=== PATIENT | female | born 1950 | race Caucasian/White ===

== ENCOUNTER 2019-06-06 17:32 | Emergency (ER) | payer MEDICARE, SELFPAY ==
--- NOTE | ~2019-06-06 | XR_ITS ---
EXAMINATION: XR ankle RT min 3V DATE: 06/06/2019 18:44 INDICATION: Right ankle fracture post fall TECHNIQUE: Anteroposterior, oblique, mortise, and lateral views of the right ankle were obtained. COMPARISON: 03/07/2011 FINDINGS: Old healed lateral malleolar fracture with interfragmentary screw and lateral plate and screw fixatio n. There is an acute fracture of the distal right fibular diaphysis which extends to the tip of the c ephalad-most screw. There is approximately one cortical width lateral displacement of the distal frag ment. Mild displacement of an oblique medial malleolar fracture which extends to the medial angle of the ankle mortise. There is 2 mm separation of the fracture plane into the articular surface and up t o 4 mm separation at the lateral margin. There is also approximately 3 mm posterior displacement of a small fracture at the posterior malleolus which appears to involve only a negligible portion of the articular surface of the tibial plafond. There is approximately 5-6 mm lateral subluxation of the wade ar dome relative to the tibial plafond and. There is mild widening of the medial clear space. Increas e in size of a now large large heterotopic ossicle at the site of previously tiny displaced fracture fragment arising from a chronic avulsion at the tip of the medial malleolus. Additional small amount of heterotopic ossification likely related to old trauma along the anterior margin of the tibial plaf ond. Joint spaces appear normal. Small plantar calcaneal spur. There is splinting material posterior to the ankle. IMPRESSION: 1. Mild displacement of a right ankle trimalleolar fracture superimposed over a chronic bimalleolar f racture with prior internal fixation of the lateral malleolus. Reviewed, dictated and finalized at location A. ERY MACHINE FEEDER OFFBEARER IMPRESSION: 1. Mild displacement of a right ankle trimalleolar fracture superimposed over a chronic bimalleolar fracture with prior internal fixation of the lateral malle olus.
[2019-06-06 17:39] VITALS: BP 145/102; PULSE 99; RESP 18; TEMP 36.4; O2SAT 96
--- NOTE | 2019-06-06 19:00 | PC.NURSE ---
CAST REMOVED AT THIS TIME PER PA ORDER.
--- NOTE | 2019-06-06 19:40 | ED.GENADULT ---
HPI - General Adult General Chief complaint: Fall Stated complaint: right foot injury Time Seen by Provider: 06/06/19 18:00 Source: patient Mode of arrival: ambulatory Limitations: no limitations History of Present Illness HPI narrative: Patient presents with chief complaint of swelling and pain to the right ankle that has worsened over the past 24 hours. Patient states that she fell while vacationing in the [facility] on 06-04-19. Patient states that she spent a greater portion of yesterday traveling and was not able to elevate the extremity. Patient states this afternoon she noticed an increasing amount of swelling to the area and discomfort. Patient states that she had surgical fixation of her fibula in [place] [address] Irving and the images that were taken in the [facility] show a fracture above that area. She states that a splint was applied to the area but at this time it feels too tight. Patient reports attempting to be seen by Dr. Irving today and have him evaluate her xrays and form plan of care, but she was unable to get in. She then called her PCP Dr Olivares and was prescribed tramadol. Patient states she took 1 tramadol at 4pm and her pain level is a 4-5. She denies numbness or intense pain. She denies inability to move toes although she reports swelling makes it difficult. She denies needing and additional pain control at this time. Related Data Allergies Allergy/AdvReac Type Severity Reaction Status Date / Time No Known Allergies Allergy Verified 06/06/19 20:07 Review of Systems Review of Systems: Narrative: CONSTITUTIONAL: Denies fever, chills, or sweats. EYES: Denies visual changes, redness, or discharge. ENT: Denies rhinorrhea, congestion, sore throat, or otalgia. CARDIOVASCULAR: Denies chest pain, palpitations, or edema. RESPIRATORY: Denies cough or dyspnea. GASTROINTESTINAL: Denies abdominal pain, nausea, vomiting, or diarrhea. GENITOURINARY: Denies dysuria or hematuria. SKIN: Denies rash or itching. MUSCULOSKELETAL: Report right low leg pain. Denies back pain, joint pain, or myalgia. NEUROLOGIC: Denies headache, numbness, dizziness, or weakness. PSYCHIATRIC: Denies anxiety or depression. PMFSH Social History Social History Gender identity (if verbalized by the patient): Female Exam Narrative: Exam Narrative: GENERAL: Well-appearing, well-nourished, and in no acute distress. HEAD: Normocephalic, atraumatic. EYES: PERRLA and EOMI. ENT: Nares clear, no rhinorrhea or epistaxis. Mucous membranes moist. Oropharynx without tonsillar hypertrophy exudate or other lesions. Bilateral TMs pearly tello nonbulging NECK: Supple. No adenopathy or masses. No carotid bruits or JVD CHEST: Clear to auscultation. No respiratory distress. No wheezes rales or rhonchi HEART: Regular rate and rhythm. No murmur heard. Normal peripheral pulses. ABDOMEN: Soft, nontender, nondistended, normal active bowel sounds. EXTREMITIES: Moderate edema from the knee down or right leg with increased warmth in comparison to left and taughtness. Splint will be removed for further assesment. SKIN: Warm, dry, no rash. NEURO: No focal deficits. Alert and oriented x3. PSYCH: Normal mood and affect. Course Course Emergency Course: splint removed and friction blister noted to medial aspect of right lower leg proximal to medial malleolus. No calf tenderness with palpation. Sensation intact to patient toes. patient is able to wiggle them. Awaiting call back from Dr Irving. Consult with Dr Deleon who is teacher adult education for Dr Irving. He states ortho teacher adult education needs to be contacted about this patient. Consult with Dr Mishra. He wants patient in short leg posterior splint, no stirrup component due to pressure blister. He wants patient to elevate extremity and follow up in his office on sunday. Call sunday for an appointment. Vital Signs Vital signs: Vital Signs Temperature 97.6 F 06/06/19 17:39 Pulse Rate 99 06/06/19 17:39 Respiratory Rate
[2019-06-06 21:35] VITALS: BP 147/76; PULSE 87; RESP 18; O2SAT 99
== END 2019-06-06 22:00 | disposition home or self-care (01) ==
PROVIDERS: Emergency Provider Emergency Medicine
DX: S82.851A Displaced trimalleolar fracture of right lower leg, initial encounter for closed fracture (principal); W19.XXXA Unspecified fall, initial encounter
CPT/HCPCS: 29515; 73610; 99284

== ENCOUNTER 2025-02-12 12:45 | Outpatient (CLI) | payer MEDICARE, SELFPAY ==
--- OUTSIDE RECORDS SUMMARY | 2025-02-12 19:37 | XMS_ITS | Encounter Summary ---
Author Organization [facility] Address [address] [place] [address] Care Team Providers Care Rn Family Name Role Phone Maddie Peacock PA-C Primary Care Provider Jeff Dos Santos MD Primary Care Provider [phone] Encounter Details Date Type Department Care Team ([facility] st Contact Info) Description 08/31/2022 [employer] Message [employer] HEALTH INFORMATION MANAGEMENT [address] [place] [address] [place], [facility] Provider Patient Amendment Request Social History Tobacco Use Types Packs/Day Years Used Date Smoking Tobacco: Never Smokeless Tobacco: Never Alcohol Use Standard Drinks/Week Comments Yes 5 (1 standard drink = 0.6 oz pur e alcohol) social AUDIT-C Answer Date Recorded Frequency of Alcohol Consumption Monthly or less 02/13/2018 Average Number of Drinks 1 or 2 018 Frequency of Binge Drinking Less than monthly PHQ-2 Answer Date Recorded Patient Health Questionnaire-2 Score 0 06/20/2022 Education Answer Date Recorded What is the highest level of school you have completed or the highest degree you have received? Some college, no degree 02/13/2018 Comments No Sex and Gender Information Value Date Recorded Sex Assigned at Female 02/13/2018 10:15 AM IN FLIGHT REFUELING OPERATOR Legal Sex Female 7:42 PM CDT Gender Identity Female 01/19/2025 2:25 PM CDT Sexual Orientation Not on file Occupation Industry Job Start Date Job End Date retired Not on file Not on file Not on file COVID-19 Exposure Response Date Recorded In the last 10 days, have yo u been in contact with someone who was confirmed or suspected to have Coronavirus/COVID-19? No / Unsure 08/30/2022 9:45 AM CDT documented as of this encounter Plan of Treatment Upcoming Encounters Date Type Department Care Team (Late st Contact Info) Description 05/28/2025 11:20 AM IN FLIGHT REFUELING OPERATOR Office Visit [facility] Family & Internal Medicine [facility] [address] [place] [address] [place] [address] [address] documented as of this encounter Visit Diagnoses Not on filedocumented in this encounter Additional Health Concerns Assessment Noted Time PHQ-9 Depression Total Score: 0 11/06/19 21 3:02 PM CDT documented as of this encounter Care Teams Rn Family Relationship Specialty Start Date End Date Maddie Peacock PA-C PCP - General PHYSICIAN PAID SEARCH MARKETING ANALYST 08/18/22 07/02/24 [place] [address] [address] PCP - General INTERNAL MEDICINE 07/03/24 documented as of this encounter
--- OUTSIDE RECORDS SUMMARY | 2025-02-12 19:37 | XMS_ITS | Encounter Summary ---
Author Organization [facility] Address [address] [place] [address] Care Team Providers Care Decorator Consultant Name Role Phone Maddie Peacock PA-C Primary Care Provider [phone] Jeff Dos Santos MD Primary Care Provider [phone] Encounter Details Date Type Department Care Team (Late st Contact Info) Description 09/06/2022 [employer] Message Enc [facility] Family & Internal Medicine [address] [address] [employer], [facility] Provider cost control supervisor Social History Tobacco Use Types Packs/Day Years [...] Sex Assigned at Female 02/13/2018 10:15 AM NETWORK ANNOUNCER Legal Sex Female 7:42 PM CDT Gender [...] suspected to have Coronavirus/COVID-19? No / Unsure 09/05/2022 3:25 PM CDT documented as of this encounter Progress Notes * Mary Horvath RN - 09/07/2022 11:07 AM CDT 09/07/2022 9:59 AM Y Mary Horvath RN User Message referral Verified Itugo message was read. * Mary Horvath RN - 09/07/2022 9:59 AM CDT It[employer] message sent to patient and referral entered for Dr Chisholm. * Maddie Peacock PA-C - 09/07/2022 9:50 AM CDT Since the nabumetone did not appear to help would recommend stopping the nabumetone and just sticking with the steroids.. I agree with the earlier referral. If she is not sleeping due to pain, we could consider gabapentin at night to see if that would help. Thank you! * Mary Horvath RN - 09/07/2022 9:03 AM CDT Please advise. Ok to order referral for Dr Chisholm? Also please advise on utilization of both medications? Thanks, Isatu documented in this encounter Plan of Treatment Upcoming Encounters Date Type Department Care Team (Late st Contact Info) Description 05/28/2025 11:20 AM NETWORK ANNOUNCER Office Visit [facility] Group Family & Internal Medicine [address] [address] [place] [address] [place] [address] documented as of this encounter Visit Diagnoses Not on filedocumented in this encounter Additional Health Concerns Assessment Noted Time PHQ-9 Depression Total Score: 0 11/06/19 21 3:02 PM CDT documented as of this encounter Care Teams Decorator Consultant Relationship Specialty Start Date End Date Maddie Peacock PA-C PCP - General PHYSICIAN LAND DEPARTMENT HEAD 08/18/22 07/02/24 [place] [address] [place] [address] PCP - General INTERNAL MEDICINE 07/03/24 documented as of this encounter
--- OUTSIDE RECORDS SUMMARY | 2025-02-12 19:37 | XMS_ITS | Encounter Summary ---
Author Organization [facility] Address [address] [place] [address] Care Team Providers Care Senior Cognos Developer Name Role Phone Maddie Peacock PA-C Primary Care Provider [phone] Jeff Dos Santos MD Primary Care Provider [phone] Encounter Details Date Type Department Care Team (Late st Contact Info) Description 08/01/2023 [employer] Message Enc [facility] Medical Group Family & Internal Medicine [address] [address] [employer], [facility] Provider Due for appt Social History Tobacco Use Types Packs/Day Years [...] Sex Assigned at Female 02/13/2018 10:15 AM TRAVEL INSURANCE AGENT Legal Sex Female 7:42 PM CDT Gender Identity Female 01/19/2025 2:25 PM CDT Sexual Orientation Not on file Occupation Industry Job Start Date Job End Date retired Not on file Not on file Not on file documented as of this encounter Plan of Treatment Upcoming Encounters Date Type Department Care Team (Late st Contact Info) Description 05/28/2025 11:20 AM TRAVEL INSURANCE AGENT Office Visit [facility] Group Family & Internal Medicine - [place] [address] [place] [address] [place] [address] [address] documented as of this encounter Visit Diagnoses Not on filedocumented in this encounter Additional Health Concerns Assessment Noted Time PHQ-9 Depression Total Score: 0 11/06/19 21 3:02 PM CDT documented as of this encounter Care Teams Senior Cognos Developer Relationship Specialty Start Date End Date Maddie Peacock PA-C PCP - General PHYSICIAN ACCOUNTS PAYABLE BOOKKEEPER 08/18/22 07/02/24 [place] [address] [address] PCP - General INTERNAL MEDICINE 07/03/24 documented as of this encounter
--- OUTSIDE RECORDS SUMMARY | 2025-02-12 19:37 | XMS_ITS | Clinical Summary ---
Author Organization [facility] Address [address] [place] [address] Care Team Providers Care Life Guard Name Role Phone Kentrell Winter MD Primary Care Provider [phone] Source Comments [facility],non-owned Affiliates and Associated Physician Practices is amultiple site organization consisting of ambulatory clinics and hospital sitesin [place], [place], [place] and [place]. This disclosure is being madepursuant to the Care Everywhere program and may not contain all information available regarding this patient. Last updated 17.[facility] Allergies No known active allergies Medications * Be aware that medications may not be up to date on this document. Alwaysverify current medications with the patient. levothyroxine (SYNTHROID) 137 MCG tablet 3 6 Active atorvastatin (LIPITOR) 20 MG tablet 7 6 Active aspirin (ASPIRIN) 81 MG tablet Take 1 (one) tablet by mouth once daily Active Multiple Minerals-Vitamin s (CALCIUM & VIT D3 BONE HEALTH PO) Take 600-800 mg by mouth once daily Active omeprazole (PRILOSEC) 20 MG capsule Take 1 (one) capsule by mouth daily before breakfast Active [place]-3 Fatty Acids (FISH OIL DELAYED RELEASE) 1000 MG capsule Take 1,200 mg by mouth daily with food Active Loratadine 10 MG Take 10 mg by mouth once daily Active Multiple Vitamins-Mineral s (MULTIVITAMIN & MINERAL PO) Take 1 tablet by mouth once daily Active losartan (COZAAR) 25 MG tablet Take 1 (one) tablet by mouth once daily Active Turmeric (QC TUMERIC COMPLEX PO) Take by mouth once daily Active ketoconazole (NIZORAL) 2 % shampooIndicatio ns:Rash and other nonspecific skin eruption Leather on back, chest and abdomen, leave on for 3 minutes, then rinse; once weekly. 30 days supply 120 mL 11 1 Active amLODIPine (Norvasc) 5 MG tablet Take 1 (one) tablet by mouth once daily 3 Active hydroCHLOROthiaz harper (Microzide) 12.5 MG capsule Take 1 (one) capsule by mouth once daily 3 Active losartan (Cozaar) 100 MG tablet Take 1 (one) tablet by mouth once daily 3 Active levothyroxine (Synthroid) 137 MCG tablet Take 1 (one) tablet by mouth once daily 4 Active losartan (Cozaar) 50 MG tablet TAKE 1 TABLET BY MOUTH ONCE DAILY WITH A 25MG TABLET TO TOTAL OF 75MG DAILY 2 Active omeprazole (PriLOSEC) 20 MG capsule Take 1 (one) capsule by mouth once daily 3 Active predniSONE (Deltasone) 5 MG tablet Take 1 (one) tablet by mouth once daily 3 Active meloxicam (Mobic) 15 MG tablet Take 1 (one) tablet by mouth once daily as needed 4 Active atorvastatin (Lipitor) 20 MG tablet Take 1 (one) tablet by mouth once daily 3 Active methotrexate 2.5 MG tablet Take 8 (eight) tablets by mouth 4 Active triamcinolone acetonide (Kenalog) 0.1 % creamIndications :Rash and other nonspecific skin eruption APPLY TO RASH AREA(S) TWICE DAILY 60 g 4 Active Active Problems Problem Noted Date Diagnosed Date Lentigines 01/17/2021 Multiple benign melanocytic nevi of upper and lower extremities and trunk 01/17/2021 Rash and other nonspecific skin eruption 021 Painful orthopaedic hardware 07/08/2020 Overview (01/17/2021): Added automatically from request for surgery [id number] Screening for colon cancer 01/12/2020 Overview (01/17/2021): Added automatically from request for surgery [id number] Closed bimalleolar fracture of right ankle 06/15 Overview (01/17/2021): Added automatically from request for surgery [id number] Added automatically from request for surgery [id number] Closed fracture of right ankle with routine heal ing 06/13/2019 Gastroesophageal reflux disease without esophagi tis 04/03/2019 Hyperlipidemia 12/10/2016 Hypertension 12/08/2016 Hypothyroidism 12/08/2016 Other seborrheic keratosis 11/04/2012 Immunizations Immunization Administration Dates Next Due INFLUENZA VACCINE, HIGH-DOSE , QUADR. (FLUZONE HIGH-DOSE QUADRIVALENT; 65Y+), 0.7 ML (HD-IIV4) 01/13/2019 Family History Medical History Relation Name Comments Allergy (Severe) Neg Hx Asthma Neg Hx CVA Neg Hx Cancer Neg Hx Cancer - Breast Neg Hx Cancer - Other Neg Hx Cancer - Skin, Melanoma Neg Hx Cancer - Skin, Non Melanoma Neg Hx Eczema Neg Hx Hemophilia Neg Hx Psoriasis Neg Hx Rashes/Skin Problems Neg Hx Social History Tobacco Use Types Packs/Day Years Used Date Smoking Tobacco: Never Smokeless Tobacco: Never Alcohol Use Standard Drinks/Week Comments Yes 0.8 (1 standard drink = 0.6 oz p ure alcohol) socially Comments Unknown Sex and Gender Information Value Date Recorded Sex Assigned at Not on file Legal Sex Female 5:32 PM EQUALIZING SAW OPERATOR Gender Identity Not on file Sexual Orientation Not on file Plan of Treatment Upcoming Encounters Date Type Department Care Team (Late st Contact Info) Description 08/10/2025 10:10 AM CDT Office Visit [facility] - Dermatology [address] [place] [address], [place] [address] Rox Rodgers MD [address] [place] [address] [address] [place] [address] Health Maintenance Due Date Last Done Comments COLOGUARD (AGES 45-75) - COLON CA SCREENING 1951 COLON MONITORING 1951 COLONOSCOPY - COLON CA SCREENING 1951 CT COLONOGRAPHY - COLON CA SCREENING 1950 Colorectal Cancer Screening 1950 FIT - COLON CA SCREENING 1950 FLEX SIG - COLON CA SCREENING 1950 MEDICARE AWV 12 MONTHS 1950 HEPATITIS C SCREENING 11/01/1969 DTAP/TDAP/TD VACCINES (1 - Tdap) 11/05/1970 PNEUMOCOCCAL VACCINE 50+ (1 of 1 - PCV) 11/05/2001 ZOSTER VACCINE (1 of 2) 11/05/2001 Respiratory Syncytial Virus (RSV) Vaccine Pt: or over 60 yrs (1 - Risk 60-74 years 1-dose series) 2011 DEPRESSION SCREENING 04/09/2024 COVID-19 VACCINE ( season) 2024 09/09/2021, 04/15/2021, 06/10/2020, Additional history exists INFLUENZA VACCINE (#1) 2024 , 01/06/2023, 02/21/2022, Additional history exists MAMMOGRAM 11/01/2025 11/02/2023, 10/08, 12/16/2021, Additional history exists BONE DENSITY TESTING Completed 12/23/2019 HEPATITIS B VACCINE Aged Out No longe r eligible based on patient's age to complete this topic HIB VACCINE Aged Out No longer eligi ble based on patient's age to complete this topic HPV VACCINE Aged Out No longer eligi ble based on patient's age to complete this topic MENINGOCOCCAL (Group B) VACCINE SHARED DECISION-MAKING Aged Out No longer eligible based on patient's age to complete this topic MENINGOCOCCAL GROUPS A/C/Y/W VACCINE Aged Out No longer eligible based on patient's age to complete this topic Insurance MEDICARE MEDICARE Care Teams Life Guard Relationship Specialty Start Date End Date Kentrell Winter MD PCP - General 01/12/20
--- OUTSIDE RECORDS SUMMARY | 2025-02-12 19:37 | XMS_ITS | Encounter Summary ---
Author Organization [facility] Address [address] [place] [address] Care Team Providers Care Supervisor Slashing Department Name Role Phone Meenakshi Huber Primary Care Provider [phone] Maddie Peacock PA-C Primary Care Provider [phone] Jeff Dos Santos MD Primary Care Provider [phone] Encounter Details Date Type Department Care Team (Late st Contact Info) Description 03/21/2022 [email or web address] Message Enc [facility] Family & Internal Medicine - [place] [address] [place] [address] Meenakshi Huber APNP [address] [facility] [address] [place] [address] High Blood Pressure Social History Tobacco Use Types Packs/Day Years Used Date Smoking Tobacco: Never Smokeless Tobacco: Never Alcohol Use Standard Drinks/Week Comments Yes 5 (1 standard drink = 0.6 oz pur e alcohol) social AUDIT-C Answer Date Recorded Frequency of Alcohol Consumption Monthly or less 02/13/2018 Average Number of Drinks 1 or 2 018 Frequency of Binge Drinking Less than monthly PHQ-2 Answer Date Recorded PHQ-2 Score - If the patient scores above 3, please move on to questions 3-9 0 11/04/2021 Education Answer Date Recorded What is the highest level of school you have completed or the highest degree you have received? Some college, no degree 02/13/2018 Comments No Sex and Gender Information Value Date Recorded Sex Assigned at Female 02/13/2018 10:15 AM PROCESS ANALYST Legal Sex Female 7:42 PM CDT Gender [...] suspected to have Coronavirus/COVID-19? No / Unsure 02/21/2022 8:45 AM PROCESS ANALYST documented as of this encounter Progress Notes * Darrius Hodge RN - 03/21/2022 11:07 AM CST See patient BP readings. ESS ANALYST documented in this encounter Plan of Treatment Upcoming Encounters Date Type Department Care Team (Late st Contact Info) Description 05/28/2025 11:20 AM PROCESS ANALYST Office Visit [facility] Group Family & Internal Medicine [facility] [address] [place] [address] [place] [address] [facility] [address] [place] [id number] documented as of this encounter Visit Diagnoses Not on filedocumented in this encounter Additional Health Concerns Assessment Noted Time PHQ-9 Depression Total Score: 0 11/06/19 21 3:02 PM CDT documented as of this encounter Care Teams Supervisor Slashing Department Relationship Specialty Start Date End Date Meenakshi Huber APNP [address] [address] PCP - General NURSE PRACTITIONER 02/13/18 08/17/22 Maddie Peacock PA-C [address] [address] PCP - General PHYSICIAN PLASMA CUTTING MACHINE OPERATOR 08/18/22 07/02/24 [place] [address] [address] PCP - General INTERNAL MEDICINE 07/03/24 documented as of this encounter
--- OUTSIDE RECORDS SUMMARY | 2025-02-12 19:37 | XMS_ITS | Encounter Summary ---
Author Organization [facility] Address [address] [place] [address] Care Team Providers Care Assistant Dean Name Role Phone Maddie Peacock PA-C Primary Care Provider [phone] Jeff Dos Santos MD Primary Care Provider [phone] Encounter Details Date Type Department Care Team (Late st Contact Info) Description 09/07/2022 [email or web address] Message Enc [facility] Family & Internal Medicine [address] [address] avox, [facility] Provider referral Social History Tobacco Use Types Packs/Day Years [...] Sex Assigned at Female 02/13/2018 10:15 AM SEARCH ENGINEER Legal Sex Female 7:42 PM CDT Gender [...] PM CDT documented as of this encounter Plan of Treatment Upcoming Encounters Date Type Department Care Team (Late st Contact Info) Description 05/28/2025 11:20 AM SEARCH ENGINEER Office Visit [facility] Family & Internal Medicine [facility] [address] [place] [address] [place] [id number] [address] documented as of this encounter Visit Diagnoses Not on filedocumented in this encounter Additional Health Concerns Assessment Noted Time PHQ-9 Depression Total Score: 0 11/06/19 21 3:02 PM CDT documented as of this encounter Care Teams Assistant Dean Relationship Specialty Start Date End Date Maddie Peacock PA-C PCP - General PHYSICIAN EXTENSION COURSE COORDINATOR 08/18/22 07/02/24 [place] [id number] [address] PCP - General INTERNAL MEDICINE 07/03/24 documented as of this encounter
--- OUTSIDE RECORDS SUMMARY | 2025-02-12 19:37 | XMS_ITS | Clinical Summary ---
Author Organization [facility] Address [address] [place] [address] Care Team Providers Care Rug Inspector Name Role Phone Jeff Dos Santos MD Primary Care Provider [phone] Allergies No known active allergies Medications Multiple Vitamin tablet Take 1 tablet by mouth once. Active aspirin 81 MG tablet Take 1 tablet (81 mg total) by mouth. Active loratadine 10 MG tablet Take 1 tablet (10 mg total) by mouth. 12/09/19 17 Active Scott-3 Fatty Acids (FISH OIL) 1200 MG CAPSULE DELAYED RELEASE Take 1,200 mg by mouth once. 12/09/19 17 Active calcium carb-cholecalcife rol 600-400 MG-UNIT Tab tablet 1 tablet daily. Active methotrexate (TREXALL) 2.5 MG tablet Take 8 tablets (20 mg total) by mouth once a week. 07/03/19 24 Active folic acid (FOLVITE) 1 MG tablet Take 2 tablets (2 mg total) by mouth daily. 03/31/20 24 Active latanoprost (XALATAN) 0.005 % ophthalmic solution Place 1 drop into both eyes daily. 02/27/20 24 Active amLODIPine (NORVASC) 5 MG tabletIndications :Hypertension, unspecified type Take 1 tablet (5 mg total) by mouth daily. 90 tablet 3 04/08/20 24 Active atorvastatin (LIPITOR) 20 MG tabletIndications :Mixed hyperlipidemia Take 1 tablet (20 mg total) by mouth daily. 90 tablet 3 04/08/20 24 Active hydroCHLOROthiazi de (MICROZIDE) 12.5 MG capsuleIndication s:Hypertension, unspecified type Take 1 capsule (12.5 mg total) by mouth daily. 90 capsule 3 04/08/20 24 Active losartan (COZAAR) 100 MG tabletIndications :Hypertension, unspecified type Take 1 tablet (100 mg total) by mouth daily. 90 tablet 3 04/08/20 24 Active omeprazole (PRILOSEC) 20 MG capsuleIndication s:Gastroesophagea l reflux disease without esophagitis Take 1 capsule (20 mg total) by mouth daily. 90 capsule 3 04/08/20 24 Active levothyroxine (SYNTHROID) 137 MCG tabletIndications :Other specified hypothyroidism Take 1 tablet (137 mcg total) by mouth daily. 30 tablet 01/20/20 25 Active metFORMIN ER (GLUCOPHAGE-XR) 500 MG 24 hr tabletIndications :Prediabetes Take 1 tablet (500 mg total) by mouth daily with breakfast. 90 tablet 01/21/20 25 Active meloxicam (MOBIC) 15 MG tablet Take 1 tablet (15 mg total) by mouth daily as needed. 07/07/19 24 025 Discontinued tiZANidine (ZANAFLEX) 2 MG tabletIndications :Polymyalgia rheumatica (HHS/HCC) Take 1 tablet by mouth twice daily as needed 60 tablet 10/22/19 24 025 Discontinued levothyroxine (SYNTHROID) 137 MCG tabletIndications :Other specified hypothyroidism Take 1 tablet by mouth once daily 30 tablet 12/16/19 25 025 Discontinued(Re order) metFORMIN ER (GLUCOPHAGE-XR) 500 MG 24 hr tabletIndications :Prediabetes Take 1 tablet (500 mg total) by mouth daily with breakfast. 90 tablet 1 01/21/20 25 025 Discontinued Active Problems Problem Noted Date Diagnosed Date Seasonal allergies 01/19/2025 Assessment & Plan (01/19/2025 3:05 PM CDT): Usually during fall season. Loratadine as needed Glaucoma of both eyes, unspecified glaucoma type 01/19/2025 Assessment & Plan (01/19/2025 3:05 PM CDT): Under care by clinical documentation improvement specialist BMI 33.0-33.9,adult 01/19/2025 Assessment & Plan (01/19/2025 3:05 PM CDT): Exercise and movement-physically active for at least 150 minutes per week Nutrition-Eat mostly plants (variety of whole grains & aim for carbohydrates low in glycemic index) -Limit fat (25-35% of your total calories) -Eat more omega-3 fatty acids (eating fatty cold water fish, walnuts, ground flax seed, and fortified eggs) -Drink more fluids (8 cups per day) -Eat smart (same time & portions) -Eat only when hungry Polymyalgia rheumatica 09/07/2023 Assessment & Plan (01/19/2025 3:05 PM CDT): Under care of a gold frame assembler for rheumatoid arthritis per the patient and on methotrexate 20 mg weekly with folic acid daily Screening for colon cancer 01/12/2020 Overview (01/12/2020): Added automatically from request for surgery [id number] Closed bimalleolar fracture of right ankle 06/15 Overview (10/29/2019): Added automatically from request for surgery [id number] Closed fracture of right ankle with routine heal ing 06/13/2019 Gastroesophageal reflux disease without esophagi tis 04/03/2019 Assessment & Plan (01/19/2025 3:05 PM CDT): Currently on omeprazole 20 mg daily-use it only as needed Cut back spicy meals and beverages Dyslipidemia 12/10/2016 Assessment & Plan (01/19/2025 3:05 PM CDT): Currently on atorvastatin 20 mg at supper also fish oil capsule along with diet controlled with restriction on red meat products and UPF Primary hypertension 12/08/2016 Assessment & Plan (01/19/2025 3:05 PM CDT): Better controlled while on losartan 100 mg daily amlodipine 5 mg daily and HCTZ 12.5 mg daily Low-salt diet Acquired hypothyroidism 12/08/2016 Assessment & Plan (01/19/2025 3:05 PM CDT): Postsurgical in 1969 status post obstructive in nature Currently on levothyroxine 137 mcg daily in the mornings Check labs and adjust the dose per the need - She had her thyroid removed in 1968 due to a goiter that was suspected to be cancerous. She has been on levothyroxine since then. - A prescription for levothyroxine 137 mcg has been sent to the pharmacy, but she is advised not to pick it up until her thyroid levels are checked. If the thyroid levels are stable, she can continue with the same dose; otherwise, the dose will be adjusted accordingly. Other seborrheic keratosis 11/04/2012 Resolved Problems Problem Noted Date Diagnosed Date Resolved Date Wears glasses 09/06/2017 12/19/2019 Encounter for preventive health examination 11/22/2016 12/19/2019 Encounters Date Type Department Care Team Description 01/20/2025 12:26 PM CDT - 01/20/2025 11:59 PM CDT Hospital Encounter [facility] Laboratory [id number] [place] [address] Jeff Dos Santos MD Discharge Disposition: Home or Self Care (Routine Discharge) 01/20/2025 9:10 AM CDT Laboratory Only [facility] Family & Internal [facility] [id number] [place] [phone] Jeff Dos Santos MD 01/20/2025 Results Follow-Up [facility] Family & Internal [address] [phone] Jeff Dos Santos MD CBC W/DIFF AUTOMATED, HEMOGLOBIN, GLYCOSYLATED, ALBUMIN URINE RANDOM W/CREATININE, Additional followed-up results: 3 01/19/2025 2:20 PM CDT Office Visit [facility] Family & Internal [facility] [address] [place] [phone] Jeff Dos Santos MD Meet and Greet Provider (Transfer pt- est care and will need bld work and refill of synthroid) 01/19/2025 Travel from Last 3 Months Immunizations Immunization Administration Dates Next Due Dtap 02/01/2011 Fluzone High Dose - >Age 65 (Prefilled Syringe) 02/21/2022 Influenza (Generic) 02/04/2015,04/09/2013 Influenza Adult (Generic) 01/22/2024,,02/21/2022,2021,01/13/2019,02/04/2015,04/09/2013 PFIZER COVID-19 (NELSON CAP), MRNA, LNP-S, PF, 30 MCG/0.3 ML KIP-SUCROSE, IM 09/09/2021 PFIZER COVID-19 (ORIGINAL FORMULATION, PURPLE CAP) mRNA, LNP-S, PF, 30 MCG/0.3 ML DOSE 04/15/2021,06/10/2020,05/17/2020 Pneumococcal (Pneumovax 23) 11/05/2020 Pneumococcal (Prevnar 13) 01/22/2024,10/29/2019 RSV VACCINE, UNSPECIFIED 04/10/2023 Shingrix 04/10/2023 Zoster (Zostavax) [address] Unt/0.65Ml 05/01/2012 Family History Medical History Relation Comments Heart Disease Father Hypertension Father cardiac disorder Father Heart Disease Mother cardiac disorder Mother Breast Cancer Neg Hx Relation Status Comments Father Mother Social History Tobacco Use Types Packs/Day Years Used Date Smoking Tobacco: Never Smokeless Tobacco: Never Alcohol Use Standard Drinks/Week Comments Yes 5 (1 standard drink = 0.6 oz pur e alcohol) Weekly AUDIT-C Answer Date Recorded Frequency of Alcohol Consumption Monthly or less 02/13/2018 Average Number of Drinks 1 or 2 018 Frequency of Binge Drinking Less than monthly PHQ-2 Answer Date Recorded Patient Health Questionnaire-2 Score 0 01/19/2025 Education Answer Date Recorded What is the highest level of school you have completed or the highest degree you have received? Some college, no degree 02/13/2018 Comments No Sex and Gender Information Value Date Recorded Sex Assigned at Female 02/13/2018 10:15 AM LEAD ETL DEVELOPER Legal Sex Female 7:42 PM CDT Gender Identity Female 01/19/2025 2:25 PM CDT Sexual Orientation Not on file Occupation Industry Job Start Date Job End Date retired Not on file Not on file Not on file Last Filed Vital Signs Vital Sign Reading Time Taken Comments Blood Pressure 132/74 01/19/2025 2:22 PM CDT Pulse 70 01/19/2025 2:22 PM CDT Temperature 36.4 C (97.5 F) 01/19/2025 2:22 PM CDT Respiratory Rate 18 01/19/2025 2:22 PM CDT Oxygen Saturation 97% 01/19/2025 2:22 PM CDT Inhaled Oxygen Concentration - - Weight 96.2 kg (212 lb) 01/19/2025 2:22 PM CDT Height 170.2 cm (5' 7) 01/19/2025 2:22 PM CDT Body Mass Index 33.2 01/19/2025 2:22 PM CDT Plan of Treatment Upcoming Encounters Date Type Department Care Team (Late st Contact Info) Description 05/28/2025 11:20 AM LEAD ETL DEVELOPER Office Visit [facility] Family & Internal Medicine - [place] [address] [place] [phone] [place] [address] [facility] [address] [place] [address] Health Maintenance Due Date Last Done Comments Annual Medicare Wellness Visit 11/05/2016 DTaP, Tdap and Td Vaccines (2 - Tdap) 02/01/2021 02/01/2011 Zoster Vaccines (3 of 3) 06/05/2023 04/10/2023, 04/10 COVID-19 Vaccine (5 - season) 2024 09/09/2021, 04/15/2021, 06/10/2020, Additional history exists Influenza Adult (#1) 2025 01/22/2024, 01/06/2023, 02/21/2022, Additional history exists Mammogram Screening 11/01/2025 11/02/2023, 12/16/2021, 12/23/2019 Colorectal Cancer Screening Colonoscopy (10 Years) 01/20/2030 01/21/2020, 10/25/2007, Dexa Scan (General) Completed 12/23/2019 Hepatitis C Completed 09/08/2022 RSV Immunization or 60+ Years Completed 04/10/2023 Pneumococcal Vaccine: 50+ Years Completed 01/22/2024, 11/05/2020, 10/29/2019 PHQ-2 (Physician [place]) Completed 01/19/2025 Hepatitis A Vaccines Aged Out No long er eligible based on patient's age to complete this topic Meningococcal B Vaccine Aged Out No l onger eligible based on patient's age to complete this topic Meningococcal Vaccine Aged Out No maureen randal eligible based on patient's age to complete this topic RSV Immunizations Under 20 Months Aged Out No longer eligible based on patient's age to complete this topic Procedures Procedure Name Priority Date/Time Associated Diagnosis Comments COLLECTION VENOUS BLOOD VENIPUNCTURE Routine 01/20/2025 9:03 AM CDT Long-term use of high-risk medication COMPREHENSIVE METABOLIC PANEL Routine 01/20/2025 8:56 AM CDT Long-term use of high-risk medication LIPID PANEL Routine 01/20/2025 8:56 AM CDT Long-term use of high-risk medication TSH W/REFLEX Routine 01/20/2025 8:56 AM CDT Long-term use of high-risk medication ALBUMIN URINE RANDOM W/CREATININE Routine 01/20/2025 8:56 AM CDT Long-term use of high-risk medication HEMOGLOBIN, GLYCOSYLATED Routine 01/20/2025 8:56 AM CDT Long-term use of high-risk medication CBC W/DIFF AUTOMATED Routine 01/20/2025 8:56 AM CDT Long-term use of high-risk medication MG SCREENING W JUMANA THAO DIGI Routine 11/02/2023 3:15 PM CDT Screening mammogram for breast cancer BONE DENSITY/DEXA Routine 12/23/2019 10: 27 AM CDT Age-related osteoporosis without current pathological fracture Screening For Osteoporosis COLONOSCOPY GENERIC (SCAN ORDER) 10/25/2007 from Last 3 Months or Most Recently Relevant to Health Maintenance Results * TSH W/REFLEX (01/20/2025 8:56 AM CDT) TSH 0.477 0.358 - 3.74 uIU/ML 01/20/2025 1:19 PM CDT [facility] Comment: HIGH DOSES OF BIOTIN MAY INTERFERE WITH THIS TEST RESULT. CORRELATION TO CLINICAL HISTORY AND PRESENTATION RECOMMENDED. FREE T4 NOT INDICATED 01/20/2025 8:56 AM CDT Jeff Dos Santos MD LABORATORY Final Resul t Performing Organization Address [facility] Co de Phone Number [facility] [address] [place] [address], [place] [phone] * (ABNORMAL) HEMOGLOBIN, GLYCOSYLATED (01/20/2025 8:56 AM CDT) HGB A1C 6.2(H) <5.7 % 01/20/2025 1:15 PM CDT [facility] Comment: INCREASED RISK OF DIABETES <5.7% NON-DIABETES 5.7-6.4% INCREASED RISK FOR FUTURE DIABETES > OR = 6.5 CONSISTENT WITH DIABETES STANDARDS OF MEDICAL CARE IN DIABETES-2010 DIABETES CARE, 33(SUPP 1): S1-S61,2010 ESTIMATED AVG GLUCOSE 131 mg/dL 01/20/2025 1:15 PM CDT [facility] 01/20/2025 8:56 AM CDT Jeff Dos Santos MD LABORATORY Final Resul t Performing Organization Address [facility] Co de Phone Number [facility] [address] [place] [address], [place] [phone] * ALBUMIN URINE RANDOM W/CREATININE (01/20/2025 8:56 AM CDT) CREATININE (U) 87.7 28 - 217 MG/DL 01/20/2025 1:17 PM CDT [facility] MICROALBUMIN (U) 0.4 <2.0 mg/dL 01/21/20 1:17 PM CDT [facility] ALBUMIN/CREAT RATIO 4.6 <30.0 MG/G 01/20/2025 1:17 PM T [facility] URINE SPECIMEN / Unknown 01/20/2025 8:56 AM CDT us Jeff Dos Santos MD URINE ORDERABLES Final Resu lt [facility] [address] [place] [address], * (ABNORMAL) COMPREHENSIVE METABOLIC PANEL (01/20/2025 8:56 AM CDT) GLUCOSE 107(H) 70 - 99 MG/DL 01/20/2025 1:19 PM CDT [facility] BUN 16 7 - 18 MG/DL 01/20/2025 1:19 PM T [facility] CREATININE S/P/B 0.94 0.55 - 1.02 MG/DL 01/20/2025 1:19 PM T [facility] SODIUM S/P/B 139 136 - 145 MMOL/L 01/20/2025 1:19 PM T [facility] POTASSIUM S/P/B 4.2 3.5 - 5.1 MMOL/L 01/20/2025 1:19 PM T [facility] CHLORIDE S/P/B 100 100 - 108 MMOL/L 01/20/2025 1:19 PM T [facility] CO2 30.5 21 - 32 MMOL/L 01/20/2025 1:19 PM T [facility] CALCIUM S/P/B 9.2 8.5 - 10.1 MG/DL 01/20/2025 1:19 PM [facility] BILIRUBIN TOTAL S/P/B 0.5 0.2 - 1.2 MG/DL 01/20/2025 1:19 PM [facility] TOTAL PROTEIN S/P/B 7.2 6.4 - 8.2 G/DL 01/20/2025 1:19 PM [facility] ALBUMIN S/P/B 3.8 3.4 - 5.0 G/DL 01/20/2025 1:19 PM [facility] AST 14(L) 15 - 37 U/L 01/20/2025 1:19 PM [facility] ALT 38 14 - 55 U/L 01/20/2025 1:19 PM [facility] ALKALINE PHOSPHATASE S/P/B 101 50 - 136 U/L 01/20/2025 1:19 PM [facility] ANION GAP 8.5 5 - 15 MMOL/L 01/20/2025 1:19 PM [facility] BUN CREATININE RATIO 17.0 6 - 26 01/20/2025 1:19 PM [facility] A/G RATIO 1.1 1.0 - 2.0 RATIO 01/20/2025 1:19 PM [facility] GFR ESTIMATE 64(L) >90 ML/MIN/1.7 3 M2 01/20/2025 1:19 PM [facility] Comment: NOTE: eGFR is not calculated for patients <18 years of age. This is an estimated GFR calculation using the new CKD EPI creatinine equation without race and so does not require a correction factor for race. This estimated GFR should not be used for calculating drug doses. 01/20/2025 8:56 AM CDT Jeff Dos Santos MD LABORATORY Final Resul t [facility] [address] [place] [address], * LIPID PANEL (01/20/2025 8:56 AM CDT) CHOLESTEROL 160 <200.0 MG/DL 01/20/2025 1:19 PM CDT [facility] TRIGLYCERIDES 140 <150 MG/DL 01/20/2025 1:19 PM CDT [facility] HDL 44 >40.0 MG/DL 01/20/2025 1:19 PM CDT [facility] LDL (CALCULATED) 88 <100 MG/DL 01/21/20 25 1:19 PM CDT [facility] Comment:CALCULATED USING THE FRIEDEWALD EQUATION NON HDL CHOLESTEROL 116 <130 MG/DL 01/20 1:19 PM CDT [facility] CHOL/HDL RATIO 3.6 0.0 - 4.5 01/20/2025 1:19 PM CDT [facility] VLDL CALCULATION 28 5 - 55 MG/DL 01/20/2025 1:19 PM T [facility] LIPID INTERPRETATION 01/20/2025 1:19 PM CDT [facility] Comment: NIH CONCENSUS REPORT RECOMMENDATIONS: ADULT CHILD LOW RISK: CHOLESTEROL <200 <170 TRIGLYCERIDE <150 --- HDL >=60 --- LDL <100 <110 BORDERLINE: CHOLESTEROL 200-239 170-199 TRIGLYCERIDE 150-199 --- HDL 40-59 --- LDL 100-159 110-129 HIGH RISK: CHOLESTEROL >=240 >=200 TRIGLYCERIDE >=200 --- HDL <40 --- LDL >=160 >=130 01/20/2025 8:56 AM CDT Jeff Dos Santos MD LABORATORY Final Resul t [facility] [address] [place] [address], * (ABNORMAL) CBC W/DIFF AUTOMATED (01/20/2025 8:56 AM CDT) WBC 6.47 4.4 - 11.0 x10'3/uL 01/20/2025 12:48 PM CDT [facility] RBC 4.34(L) 4.50 - 5.10 x10'6/uL 01/20/2025 12:48 PM CDT [facility] HGB 13.5 12.3 - 15.3 G/DL 01/20/2025 12:48 PM CDT [facility] HCT 41.4 35.9 - 44.6 % 01/20/2025 12:48 PM CDT [facility] MCV 95.4 80.0 - 96.0 FL 01/20/2025 12:48 PM CDT [facility] MCH 31.1(H) 25.3 - 30.9 PG 01/20/2025 12:48 PM CDT [facility] MCHC 32.6 31.0 - 34.1 G/DL 01/20/2025 12:48 PM CDT [facility] RDW 13.7 12.4 - 15.1 % 01/20/2025 12:48 PM CDT [facility] PLT 245 151 - 353 x10'3/uL 01/20/2025 12:48 PM CDT [facility] MPV 11.0 9.6 - 12.0 FL 01/20/2025 12:48 PM CDT [facility] RBC MORPHOLOGY NORMAL 01/20/2025 12:48 PM CDT [facility] PLT MORPH. NORMAL 01/20/2025 12:48 PM CDT [facility] WBC MORPHOLOGY NORMAL 01/20/2025 12:48 PM CDT [facility] LYMPHOCYTES % 28.7 15.8 - 45.0 % 01/20/2025 12:48 PM CDT [facility] NEUTROPHILS % 55.1 42.1 - 71.9 % 01/20/2025 12:48 PM CDT [facility] MONOCYTES % 10.5 5.7 - 12.5 % 01/20/2025 12:48 PM CDT [facility] EOSINOPHILS 4.0 0.0 - 5.6 % 01/20/2025 12:48 PM CDT [facility] BASOPHILS 1.5(H) 0.0 - 1.3 % 01/20/2025 12:48 PM CDT [facility] ABS. NEUTROPHILS 3.56 1.40 - 6.00 x10'3/uL 01/20/2025 12:48 PM CDT [facility] IMMATURE GRANS % 0.2 0.0 - 0.5 % 01/20/2025 12:48 PM CDT [facility] ABS. LYMPHOCYTES 1.86 0.80 - 4.70 x10'3/uL 01/20/2025 12:48 PM CDT [facility] 01/20/2025 8:56 AM CDT us Jeff Dos Santos MD LABORATORY Final Resul t [facility] [address] [place] [address], * MG SCREENING W JUMANA THAO DIGI (11/02/2023 3:15 PM CDT) Anatomical Region Laterality Modality Breast Bilateral Mammography 11/05/2023 1:36 PM CDT Impressions 11/05/2023 1:36 PM CDT =====IMPRESSION:===== No mammographic findings suggestive of malignancy ASSESSMENT: ACR BI-RADS 2 - BENIGN FINDING(S) Recommendation: 1: Routine Screening Bilateral COMMENTS: Ordered By: MELISSA MORE Interpreted By: Andrea Iverson MD, 11/05/2023 1:36 PM Narrative 11/05/2023 1:36 PM CDT EXAMINATION: Digital bilateral screening mammogram with 3-D tomosynthesis EXAM DATE/TIME: 11/02/2023 3:03 PM REASON FOR EXAM: screening COMPARISON: Priors including December 2021, December 2019, August 2015. TECHNIQUE: Digital screening mammography of both breasts was performed in addition to 3-D Tomosynthesis technique. This study was read with the assistance of a computer-aided detection system. TISSUE DENSITY: There are scattered areas of fibroglandular density. FINDINGS: No suspicious masses, malignant appearing calcifications, skin thickening or other abnormalities are present. No significant change from the prior exam. Melissa MAY-C MAMMO Final Result * BONE DENSITY/DEXA (12/23/2019 10:27 AM CDT) Anatomical Region Laterality Modality Bone Bone Density 12/23/2019 1:21 PM CDT Impressions 12/23/2019 1:22 PM CDT FINDINGS AND IMPRESSION: Examination performed on a [employer] .: LUMBAR SPINE L2-L4: 1. BMD: 1.084 g/cm2. 2. T score: 0.0. Previous T score: No previous available. 3. WHO classification: Normal young adult range. 4. Fracture risk: Very low. LEFT FEMORAL NECK: 1. BMD: 0.869 g/cm2. 2. T score: 0.2. Previous T score: No previous available. 3. WHO classification: Normal young adult range. 4. Fracture risk: Very low. Voice recognition software utilized. Interpreted By: Keith Guan, 12/23/2019 1:21 PM Narrative 12/23/2019 1:22 PM CDT Examination: BONE DENSITY/DEXA Exam date/time: 12/23/2019 9:58 AM Comparison studies:No previous available. Clinical history: . Postmenopausal status, screening Procedure Note Keith Guan MD - 12/23/2019 Examination: BONE DENSITY/DEXA Exam date/time: 12/23/2019 9:58 AM Comparison studies:No previous available. Clinical history: . Postmenopausal status, screening FINDINGS AND IMPRESSION: Examination performed on a [employer] SL .: LUMBAR SPINE L2-L4: 1. BMD: 1.084 g/cm2. 2. T score: 0.0. Previous T score: No previous available. 3. WHO classification: Normal young adult range. 4. Fracture risk: Very low. LEFT FEMORAL NECK: 1. BMD: 0.869 g/cm2. 2. T score: 0.2. Previous T score: No previous available. 3. WHO classification: Normal young adult range. 4. Fracture risk: Very low. Voice recognition software utilized. Interpreted By: Keith Guan, 12/23/2019 1:21 PM us Meenakshi TORRES DEXA Final Resul t * COLONOSCOPY GENERIC (10/25/2007) 10/25/2007 Narrative 10/25/2007 Ordered by an unspecified provider. us Documents Scanned SCANNING Final Result from Last 3 Months or Most Recently Relevant to Health Maintenance Insurance [employer] [facility] [place] [employer] Care Teams Rug Inspector Relationship Specialty Start [place] [address] [place] [address] PCP - General INTERNAL MEDICINE 07/03/24
--- OUTSIDE RECORDS SUMMARY | 2025-02-12 19:37 | XMS_ITS | Encounter Summary ---
Author Organization [facility] Address [address] [place] [address] Care Team Providers Care Cash Sales Audit Clerk Name Role Phone Maddie Peacock PA-C Primary Care Provider [phone] Jeff Dos Santos MD Primary Care Provider [phone] Encounter Details Date Type Department Care Team (Late st Contact Info) Description 09/04/2022 [employer] Message Enc [facility] Family & Internal Medicine [address] [address] Maddie Peacock PA-C [address] [place] [address] Hips and shoulders pain Social History Tobacco Use Types Packs/Day Years [...] Sex Assigned at Female 02/13/2018 10:15 AM SALES OFFICE ASSISTANT Legal Sex Female 7:42 PM CDT Gender [...] Progress Notes * Mary Horvath RN - 09/05/2022 9:23 AM CDT Please advise. documented in this encounter Plan of Treatment Upcoming Encounters Date Type Department Care Team (Late st Contact Info) Description 05/28/2025 11:20 AM SALES OFFICE ASSISTANT Office Visit [facility] Family & Internal Medicine [address] [address] Jeff Dos Santos MD [address] [place] [phone] documented as of this encounter Visit Diagnoses Not on filedocumented in this encounter Additional Health Concerns Assessment Noted Time PHQ-9 Depression Total Score: 0 11/06/19 21 3:02 PM CDT documented as of this encounter Care Teams Cash Sales Audit Clerk Relationship Specialty Start Date End Date Maddie Peacock PA-C PCP - General PHYSICIAN NATURAL GAS TECHNICIAN 08/18/22 07/02/24 Jeff Dos Santos MD [address] [place] [id number] PCP - General INTERNAL MEDICINE 07/03/24 documented as of this encounter
--- OUTSIDE RECORDS SUMMARY | 2025-02-12 19:37 | XMS_ITS | Encounter Summary ---
Author Organization [facility] Address [address] [place] [address] Care Team Providers Care Garbage Pick Up Man Name Role Phone Meenakshi Huber Primary Care Provider [phone] Maddie Peacock PA-C Primary Care Provider [phone] Jeff Dos Santos MD Primary Care Provider [phone] Encounter Details Date Type Department Care Team (Late st Contact Info) Description 02/28/2022 [employer] Message Enc [facility] Family & Internal Medicine - [place] [address] [place] [address] Meenakshi Huber APNP [address] [facility] [address] [place] [address] High blood pressure Social History Tobacco Use Types Packs/Day Years [...] Sex Assigned at Female 02/13/2018 10:15 AM TANK FARM ATTENDANT Legal Sex Female 7:42 PM CDT Gender [...] Coronavirus/COVID-19? No / Unsure 02/21/2022 8:45 AM TANK FARM ATTENDANT documented as of this encounter Progress Notes * Darrius Hodge RN - 02/28/2022 2:03 PM CST See patient message below. FARM ATTENDANT documented in this encounter Plan of Treatment Upcoming Encounters Date Type Department Care Team (Late st Contact Info) Description 05/28/2025 11:20 AM TANK FARM ATTENDANT Office Visit [facility] Family & Internal Medicine [facility] [address] [place] [phone] [place] [address] [facility] [address] [place] [phone] documented as of this encounter Visit Diagnoses Not on filedocumented in this encounter Additional Health Concerns Assessment Noted Time PHQ-9 Depression Total Score: 0 11/06/19 21 3:02 PM CDT documented as of this encounter Care Teams Garbage Pick Up Man Relationship Specialty Start Date End Date Meenakshi Huber APNP [address] [address] PCP - General NURSE PRACTITIONER 02/13/18 08/17/22 Maddie Peacock PA-C [address] [address] PCP - General PHYSICIAN BARKER OPERATOR 08/18/22 07/02/24 [place] [address] [address] PCP - General INTERNAL MEDICINE 07/03/24 documented as of this encounter
--- OUTSIDE RECORDS SUMMARY | 2025-02-12 19:37 | XMS_ITS | Encounter Summary ---
Author Organization [facility] Address [address] [place] [address] Care Team Providers Care Brand Leader Name Role Phone Meenakshi Huber Primary Care Provider [phone] Maddie Peacock PA-C Primary Care Provider [phone] Jeff Dos Santos MD Primary Care Provider [phone] Encounter Details Date Type Department Care Team (Late st Contact Info) Description 01/15/2020 Prep for Procedure [facility] [address] [place], [place] [id number] Jeremy Huggins MD [address] [place] [id number] Social History Tobacco Use Types Packs/Day Years Used Date Smoking Tobacco: Never Smokeless Tobacco: Never Alcohol Use Standard Drinks/Week Comments Yes 0 (1 standard drink = 0.6 oz pur e alcohol) social AUDIT-C Answer Date Recorded Frequency of Alcohol Consumption Monthly or less 02/13/2018 Average Number of Drinks 1 or 2 018 Frequency of Binge Drinking Less than monthly PHQ-2 Answer Date Recorded PHQ-2 Score 0 04/03/2019 Education Answer Date Recorded What is the highest level of school you have completed or the highest degree you have received? Some college, no degree 02/13/2018 Comments No Sex and Gender Information Value Date Recorded Sex Assigned at Female 02/13/2018 10:15 AM SUGAR PLANTATION MANAGER Legal Sex Female 7:42 PM CDT Gender Identity Female 01/19/2025 2:25 PM CDT Sexual Orientation Not on file Occupation Industry Job Start Date Job End Date retired Not on file Not on file Not on file COVID-19 Exposure Response Date Recorded In the last month, have you been in contact with someone who was confirmed or suspected to have Coronavirus / COVID-19? No / Unsure 01/18/2020 11:18 AM CDT documented as of this encounter Plan of Treatment Upcoming Encounters Date Type Department Care Team (Late st Contact Info) Description 05/28/2025 11:20 AM SUGAR PLANTATION MANAGER Office Visit [facility] Family & Internal Medicine [facility] [address] [place] [phone] [place] [address] [address] documented as of this encounter Visit Diagnoses Diagnosis Preop testing- Primary Preoperative examination, unspecified documented in this encounter Additional Health Concerns Infection Onset Date Last Indicated Resolved Time COVID-19 Rule Out 01/18/2020 01/18/2020 01/19/2020 5:51 PM CDT documented as of this encounter Care Teams Brand Leader Relationship Specialty Start Date End Date Meenakshi Huber APNP [address] [address] PCP - General NURSE PRACTITIONER 02/13/18 08/17/22 Maddie Peacock PA-C [address] [address] PCP - General PHYSICIAN SUPERVISOR LAMP SHADES 08/18/22 07/02/24 [place] [address] [address] PCP - General INTERNAL MEDICINE 07/03/24 documented as of this encounter
--- OUTSIDE RECORDS SUMMARY | 2025-02-12 19:37 | XMS_ITS | Encounter Summary ---
Author Organization [facility] Address [address] [place] [address] Care Team Providers Care Service Line Layer Name Role Phone Maddie Peacock PA-C Primary Care Provider [phone] Jeff Dos Santos MD Primary Care Provider [phone] Encounter Details Date Type Department Care Team (Late st Contact Info) Description 07/02/2023 [employer] Message Enc [facility] Family & Internal Medicine [address] [address] [place] Provider Due for appt Social History Tobacco [...] Sex Assigned at Female 02/13/2018 10:15 AM PARACHUTE/COMBATANT DIVER OFFICER Legal Sex Female 7:42 PM CDT Gender Identity Female 01/19/2025 2:25 PM CDT Sexual Orientation Not on file Occupation Industry Job Start Date Job End Date retired Not on file Not on file Not on file documented as of this encounter Plan of Treatment Upcoming Encounters Date Type Department Care Team (Late st Contact Info) Description 05/28/2025 11:20 AM PARACHUTE/COMBATANT DIVER OFFICER Office Visit [facility] Family & Internal Medicine - [place] [address] [place] [address] [place] [address] [address] documented as of this encounter Visit Diagnoses Not on filedocumented in this encounter Additional Health Concerns Assessment Noted Time PHQ-9 Depression Total Score: 0 11/06/19 21 3:02 PM CDT documented as of this encounter Care Teams Service Line Layer Relationship Specialty Start Date End Date Maddie Peacock PA-C PCP - General PHYSICIAN SUPPLY TECH 08/18/22 07/02/24 [place] [address] [address] PCP - General INTERNAL MEDICINE 07/03/24 documented as of this encounter
--- OUTSIDE RECORDS SUMMARY | 2025-02-12 19:37 | XMS_ITS | Clinical Summary ---
Author Organization [facility] Address [address] [place] [phone] Care Team Providers Care Unpaid Intern Name Role Phone Kentrell Winter MD Primary Care Provider [phone] FolsomMike [place] MD Unavailable [phone] Allergies No known active allergies Medications atorvastatin (LIPITOR) 20 mg tabletIndicatio ns:hyperlipidem ia Take 20 mg by mouth nightly 0 Active levothyroxine (SYNTHROID) 137 mcg tabletIndicatio ns:hypothyroidi sm Take 137 mcg by mouth import dispatcher before breakfast 0 Active losartan (COZAAR) 25 mg tabletIndicatio ns:hypertension Take 25 mg by mouth every morning Active sgnzi-3-zyu-epa -fish oil (Fish Oil) 300-1,000 mg capsule,delayed release(DR/EC) Take 1,200 mg by mouth every morning Active omeprazole (PriLOSEC) 20 mg capsuleIndicati ons:Treatment of Non-Bleeding Gastric Disorder Take 20 mg by mouth as needed (GERD) 0 Active multivit zdktjelt-qrib-M A-calcium (THERA-M) 9 mg iron-400 mcg tabletIndicatio ns:Vitamin Deficiency Prevention Take 1 tablet by mouth every morning Active loratadine 10 mg capsuleIndicati ons:Allergic Rhinitis Take 10 mg by mouth every morning Active acetaminophen (TYLENOL) 500 mg tablet Take 1,000 mg by mouth every 6 (six) hours as needed for pain Active diphenhydrAMINE -acetaminophen (TYLENOL PM) 25-500 mg tablet Take 1 tablet by mouth nightly as needed for sleep Active calcium carbonate-vitam in D3 500 mg(1,250mg) -400 unit chewable tabletIndicatio ns:Hypocalcemia Prevention Take 1 tablet by mouth every morning Active aspirin 325 mg enteric coated tablet Take 1 tablet (325 mg total) by mouth daily 30 tablet 2 1 Active ketorolac (TORADOL) 10 mg tablet Take 1 tablet (10 mg total) by mouth every 6 (six) hours as needed for pain 16 tablet 1 Active Active Problems Problem Noted Date Diagnosed Date Painful orthopaedic hardware 07/08/2020 Overview (07/08/2020): Added automatically from request for surgery [id number] Closed bimalleolar fracture of right ankle 06/15 Overview (06/16/2019): Added automatically from request for surgery [id number] Closed fracture of right ankle with routine heal ing 06/13/2019 Other seborrheic keratosis 11/04/2012 Immunizations Immunization Administration Dates Next Due DTaP 02/01/2011 Influenza, Quadrivalent, Split, Intramuscular Influenza, Trivalent, High D ose, Split, Preservative Free, Intramuscular 01/13/2019 Influenza, Trivalent, IM (MDV) 04/09/2013 ZOSTER LIVE 05/01/2012 Surgical History Surgery Date Site/Laterality Comments ANKLE FRACTURE SURGERY 04/09/2012 - 04/08/2013 Right X2 THYROIDECTOMY 04/09/1968 - 04/08/1969 COLONOSCOPY 04/09/2019 - 04/08/2020 Medical History Medical History Date Comments Hypertension Hyperlipidemia GERD (gastroesophageal reflux disease) well controlled Hypothyroidism Insomnia Allergic rhinitis Social History Tobacco Use Types Packs/Day Years Used Date Smoking Tobacco: Never Smokeless Tobacco: Never Alcohol Use Standard Drinks/Week Comments Yes 0 (1 standard drink = 0.6 oz pur e alcohol) occasionally AUDIT-C Answer Date Recorded Q1: How often do you have a drink containing alcohol? 4 or more times a week 07/23/2020 Q2: How many drinks containi ng alcohol do you have on a typical day when you are drinking? 1 or 2 Q3: How often do you have si x or more drinks on one occasion? Never 07/23/2020 Comments No Sex and Gender Information Value Date Recorded Sex Assigned at Not on file Legal Sex Female 11:36 AM CENTER LINE CUTTER OPERATOR Gender Identity Female 10/17/2020 5:52 PM CDT Sexual Orientation Straight 07/21/2019 9: 56 AM CDT Last Filed Vital Signs Vital Sign Reading Time Taken Comments Blood Pressure 151/87 08/05/2020 3:05 PM CDT Pulse 71 08/05/2020 3:15 PM CDT Temperature 36.3 C (97.3 F) 08/05/2020 2:22 PM CDT Respiratory Rate 16 08/05/2020 3:15 PM CDT Oxygen Saturation 97% 08/05/2020 3:15 PM CDT Inhaled Oxygen Concentration - - Weight 92.5 kg (204 lb) 10/06/2022 11:00 AM CDT Height 170.2 cm (5' 7) 10/06/2022 11:00 AM CDT Body Mass Index 31.95 10/06/2022 11:00 AM CDT Plan of Treatment Health Maintenance Due Date Last Done Comments Breast Cancer Screening-Mammogram 1950 Colon Cancer Screening-Colonoscopy 1950 Depression Screening 1950 Hepatitis C Screening 1950 Osteoporosis Screening-Bone Density Scan 1950 Hepatitis B Screening 11/05/1969 Zoster Vaccine (2 of 3) 06/26/2012 05/01/2012 Well Visit 65+ 11/05/2016 DTaP/Tdap/Td Vaccine (2 - Tdap) 02/01/2021 1 Fall Risk Assessment 08/05/2021 08/05/2020 Covid-19 Vaccine (4 - 2024-2 6 season) 2024 04/15/2021, 06/10/2020, 05/17/2020 Influenza Vaccine (#1) 2024 , 04/15/2021, 01/13/2019, Additional history exists Pneumococcal vaccine 65+ Completed 11/05/2020, 10/08 Medical Devices Implanted Type Area Delinquent Tax Collector Assistant Device Identifier Shelf Expiration Date Model / Serial / Lot [employer] [id number] Tightrope Knotless Kit Endoscopic Instrument Titanium Sterile - [id number] Implanted:Qty: 1 on 06/18/2019 by Mike Mena MD at [facility] Right: Ankle [employer] [id number] 10/07/2023 [id number]-[id number] / / [id number] [employer] [id number] Screw Bone Medline Unite L14mm Od3.5mm Foot Ankle Nonlock - [id number] Implanted:Qty: 2 on 06/18/2019 by Mike Mena MD at [facility] Right: Ankle [employer] [id number] / / [employer] [id number] Screw Bone Medline Unite L20mm Od3.5mm Foot Ankle Nonlock - [id number] Implanted:Qty: 1 on 06/18/2019 by Mike Mena MD at [facility] Right: Ankle [employer] [id number] / / [employer] [id number] Screw Bone Medline Unite L30mm Od3.5mm Foot Ankle Nonlock - [id number] Implanted:Qty: 1 on 06/18/2019 by Mike Mena MD at [facility] Right: Ankle [employer] [id number] / / [employer] [id number] Screw Bone Medline Unite L40mm Od3.5mm Foot Ankle Nonlock - [id number] Implanted:Qty: 1 on 06/18/2019 by Mike Mena MD at [facility] Right: Ankle [employer] [id number] / / [employer] [id number] Plate Bone Medline Unite Straight Fibula Tibial 5 Hole - [id number] Implanted:Qty: 1 on 06/18/2019 by Mike Mena MD at [facility] Right: Ankle [employer] [id number] / / [employer] [id number] Plate Bone Straight 12 Hole - [id number] Implanted:Qty: 1 on 06/18/2019 by Mike Mena MD at [facility] Right: Ankle [employer] [id number] / / [employer] [id number] Screw Bone Medline Unite L55mm Od4mm Ankle Cannulated Head - [id number] Implanted:Qty: 1 on 06/18/2019 by Mike Mena MD at [facility] Right: Ankle Med[employer] [id number] / / Medline [employer] [id number] Screw Bone Medline Unite L14mm Od4mm Ankle Cancellous - [id number] Implanted:Qty: 1 on 06/18/2019 by Mike Mena MD at [facility] Right: Ankle [employer] [id number] / / Medline [employer] [id number] Screw Bone Medline Unite L16mm Od4mm Ankle Cancellous - [id number] Implanted:Qty: 1 on 06/18/2019 by Mike Mena MD at [facility] Right: Ankle [employer] [id number] / / Medline [employer] [id number] Screw Bone Medline Unite L18mm Od4mm Ankle Cancellous - [id number] Implanted:Qty: 1 on 06/18/2019 by Mike Mena MD at [facility] Right: Ankle [employer] [id number] / / [employer] Ar-8926t Tightrope Knotless Kit Endoscopic Instrument Titanium Sterile - [id number] Implanted:Qty: 1 on 06/18/2019 by Mike Mena MD at [facility] Right: Ankle [employer] [id number] 10/07/2023 AR-[id number] / / [id number] [employer] [id number] Screw Bone Medline Unite L12mm Od3.5mm Foot Ankle Nonlock - [id number] Implanted:Qty: 2 on 06/18/2019 by Mike Mena MD at [facility] Right: Ankle [employer] [id number] / / Explanted Type Area Delinquent Tax Collector Assistant Device Identifier Shelf Expiration Date Model / Serial / Lot [employer] [id number] Pin Fixation Medline Unite L10mm Od1.1mm - [id number] Explanted:Qty: 2 on 06/18/2019 at [facility] Right: Ankle [employer] [id number] / / [place] [address] AET SENIOR SUPPLEMENT COMMERCIAL [place]IC [place] [address] [employer] SENIOR SUPPLEMENT MEDICARE RAILROAD COMMERCIAL GENERIC [employer] Advance Directives For more information, please contact: [phone] * Full Code (Latest Code Status on File) Date Activated Date Inactivated Comments 06/19/2019 1:33 AM 06/20/2019 1:58 AM Care Teams Unpaid Intern Relationship Specialty [place] [address] [address] [address] PCP - General Family Practice 06/09/19 [place] [address] [address] [address] Consulting Physician Orthopedic Surgery 06/18/19
--- OUTSIDE RECORDS SUMMARY | 2025-02-12 19:37 | XMS_ITS | Clinical Summary ---
Author Organization [employer] [facility] Address [address] [place] [address] Care Team Providers Care Grinder Machine Knife Setter Name Role Phone Unavailable Primary Care Provider Unavailabl e Social History Tobacco Use Types Packs/Day Years Used Date Smoking Tobacco: Never Assessed Comments Unknown Sex and Gender Information Value Date Recorded Sex Assigned at Not on file Legal Sex Female 1:50 PM CDT Gender Identity Not on file Sexual Orientation Not on file Plan of Treatment Health Maintenance Due Date Last Done Comments COLORECTAL SCREENING 11/05/1996 Colorectal Cancer Screening 11/05/1996 FIT-DNA Q 3 years 11/05/1996 FIT/FOBT Q 1 year 11/05/1996 Flex Sig/CT Colonography Q 5 years 11/05/1996 ZOSTER VACCINE (2 of 3) 06/26/2012 05/01/2012 DTAP/TDAP/TD VACCINES (2 - Tdap) 02/01/2021 02/02/20 11 BREAST CANCER SCREENING 12/16/2022 12/16/2021, 12/22 INFLUENZA VACCINE (#1) 2024 2, 01/13/2019, 01/13/2019, Additional history exists OSTEOPOROSIS SCREENING 12/22/2024 12/23/2019 RSV VACCINE (60+ or ) (1 - 1-dose 75+ series) 11/05/2026 PNEUMOCOCCAL VACCINE 50+ YEARS Completed 11/05/2020 , 10/29/2019 Insurance MEDICARE RAILROAD GENERIC PAYOR
== END 2025-02-12 12:46 | disposition home or self-care (01) ==
PROVIDERS: Visit Provider Internal Medicine
DX: H90.3 Sensorineural hearing loss, bilateral (principal); H61.23 Impacted cerumen, bilateral; I10 Essential (primary) hypertension; E03.9 Hypothyroidism, unspecified; E78.5 Hyperlipidemia, unspecified; K21.9 Gastro-esophageal reflux disease without esophagitis
CPT/HCPCS: 92557; 92567